=== PATIENT | female | born 1980 | race Caucasian/White ===

== ENCOUNTER → 2019-08-07 08:25 | Outpatient (CLI) | payer BC, SELFPAY ==
--- NOTE | ~2019-08-07 | MMUS_ITS ---
EXAMINATION: MM diagnostic mammo BI, US breast BI limited HISTORY: Bilateral breast asymmetries with possible architectural distortion of left breast reported on screening mammogram of 07/30/2019 TECHNIQUE: Additional 3-D tomosynthesis images of both breasts were performed and synthetic 2-D image s were generated. CAD analysis was submitted and interpreted. High resolution upper outer quadrant le ft breast ultrasound and upper outer and lower-outer quadrants right breast ultrasound examination wa s performed. COMPARISON: 07/30/2019 bilateral digital screening mammogram FINDINGS: MAMMOGRAPHIC FINDINGS: No definite reproducible mass or architectural distortion is evident with small masses might be obscu red by the heterogeneous stroma. Bilateral ultrasound examination was performed. ULTRASOUND: There is no evidence of focal abnormal solid or cystic lesion in the upper outer quadrant of the left breast were upper outer or lower outer quadrants of the right breast. IMPRESSION: 1. No mammographic evidence of malignancy 2. Routine mammographic screening follow-up in 1 year is recommended. BI-RADS Category 1: Negative Reviewed, dictated and finalized at location A. ENGINEER IMPRESSION: 1. No mammographic evidence of malignancy 2. Routine mammographic screening follow-up in 1 year is recommended. BI-RADS Category 1: Negative
== END ==
PROVIDERS: Visit Provider Obstetrics & Gynecology
DX: R92.2 Inconclusive mammogram (principal)
CPT/HCPCS: 76642; 77066

== ENCOUNTER 2020-04-20 06:39 | Emergency (ER) | payer BC, SELFPAY ==
[2020-04-20 06:42] VITALS: BP 153/96; PULSE 72; RESP 19; TEMP 36.3; O2SAT 100
[2020-04-20 07:25] LABS: Add Urine Microscopic? NO; Appearance Urine Clear (Clear); Bilirubin Urine Negative (Negative); Blood Urine Negative (Negative); Color Urine Yellow (Yellow); Glucose Urine UA Negative (Negative); Ketones Urine Negative (Negative); Leukocyte Esterase Ur Negative LEU/UL (Negative); Mucus Urine Rare /lpf; Nitrate Urine Negative (Negative); Protein Urine Negative (Negative); RBC Urine 0-2 /hpf (0-2); Specific Grav Ur 1.019 (1.001-1.035); Squamous Epithelial Cell Urine Occasional /hpf (Few); Urobilinogen Urine Negative mg/dL (<2.0); WBC Urine 0-3 /hpf
[2020-04-20 07:28] LABS: Alanine Aminotransferase 16 U/L (4-35); Albumin Level 4.2 g/dL (3.5-5.1); Alkaline Phosphatase 62 U/L (38-126); Anion Gap 8 mmol/L (8-16); Aspartate Amino Transferase 24 U/L (14-36); Bilirubin,Total 0.3 mg/dL (0.2-1.3); Blood Urea Nitrogen 13 mg/dL (7-17); Calcium 8.9 mg/dL (8.4-10.2); Carbon Dioxide 26 mmol/L (22-30); Chloride 107 mmol/L (98-107); Estimated Glomerular Filt Rate > 60; Glucose 96 mg/dL (65-105); Lipase 53 U/L (23-300); Potassium 3.8 mmol/L (3.4-5.0); Sodium 141 mmol/L (137-145)
[2020-04-20 07:32] LABS: Basophils Percent Auto 0.4 % (0.2-1.2); Eosinophils Absolute Auto 0.4 K/mm3 (0-0.3); Eosinophils Percent Auto 5.4 % (0-4.4); Hematocrit 37.2 % (37.0-47.0); Hemoglobin 12.6 g/dL (12.0-15.0); Immature Granulocyte Absolute 0.02 K/mm3 (0.00-0.031); Immature Granulocyte Percent A 0.3 % (0-0.5); Lymphocytes Absolute Auto 2.12 K/mm3 (0.9-3.2); Lymphocytes Percent Auto 30.1 % (18.3-44.2); Mean Corpuscular HGB Conc 33.9 g/dl (32-36); Mean Corpuscular Hemoglobin 30.8 pg (26-34); Mean Platelet Volume 9.5 fl (7.4-10.4); Monocytes Absolute Auto 0.4 K/mm3 (0.1-0.6); Monocytes Percent Auto 5.7 % (2.6-8.5); Neutrophils Absolute Auto 4.1 K/mm3 (1.3-6.7); Neutrophils Percent Auto 58.1 % (45.5-73.1); Platelet Count Result 230 k/mm3 (150-375); Red Blood Count 4.09 M/mm3 (4.2-5.4); Red Cell Distribution Width 11.5 % (11.5-14.5)
[2020-04-20] MEDS: FAMOTIDINE 20 MG/2 ML VIAL IV PUSH (07:35)
[2020-04-20] MEDS: SODIUM CHLORIDE 0.9% IV 1,000 ML 999 ML IV CONT (07:35)
[2020-04-20] MEDS: ONDANSETRON INJ 4 MG/2 ML VIAL IV PUSH (07:35)
[2020-04-20] MEDS: KETOROLAC 30 MG/ML VIAL (*BKC) IV PUSH (08:26)
--- NOTE | 2020-04-20 08:53 | ED.GENADULT ---
HPI - General Adult General Chief complaint: Nausea/Vomiting/Diarrhea Stated complaint: Vomiting, nausea Time Seen by Provider: 04/20/20 07:11 Source: patient Mode of arrival: ambulatory Limitations: no limitations History of Present Illness HPI narrative: 39-year-old with no major medical problems here with complaints of having headache for past few days along with nausea and vomiting. Patient states that she has been taking all different kinds of medications for headache which is making her to have stomach irritation followed by nausea and vomiting. She denies any fever or chills. She states the headache is very minimal however nausea is the major problem at this time. She denies any abdominal pain or diarrhea. No history of fever or chills. Onset (ago): day(s) (3) Location: head Severity: moderate Quality: aching Pain Consistency: constant Relieving factors: none Exacerbating factors: none Associated symptoms: nausea/vomiting Related Data Allergies Allergy/AdvReac Type Severity Reaction Status Date / Time No Known Allergies Allergy Verified 04/20/20 06:50 Review of Systems Review of Systems: All systems reviewed & are unremarkable except as noted in HPI and below Constitutional: Constitutional: Reports no additional constitutional complaints Eyes: Eyes: Reports no additional eye complaints ENT: Reports system reviewed and no additional complaints, except as documented Cardiovascular: Cardiovascular: Reports no additional cardiovascular complaints Respiratory: Respiratory: Reports no additional respiratory complaints Gastrointestinal: Gastrointestinal: Reports as per HPI Musculoskeletal: Musculoskeletal: Reports no additional musculoskeletal complaints Neurologic: Reports system reviewed and no additional complaints, except as documented Endocrine: Endocrine: Reports no additional endocrine complaints PMFSH Social History Social History Smoking status: Never smoker Exam Narrative: Exam Narrative: GENERAL: Well-appearing, well-nourished, and in no acute distress. HEAD: Normocephalic, atraumatic. EYES: PERRLA and EOMI. ENT: Nares clear, no rhinorrhea or epistaxis. Mucous membranes moist. NECK: Supple. CHEST: Clear to auscultation. No respiratory distress. HEART: Regular rate and rhythm. No murmur heard. Normal peripheral pulses. ABDOMEN: Soft, nontender, nondistended, normal active bowel sounds. EXTREMITIES: Normal range of motion. No edema. SKIN: Warm, dry, no rash. NEURO: No focal deficits. Alert and oriented x3. PSYCH: Normal mood and affect. Course Reevaluation(s) Reevaluation #1: Patient feeling much better, I informed her about her lab work, advised her to take pain medication and nausea medicine as needed. Time: 08:59 Vital Signs Vital signs: Vital Signs Temperature 36.3 C L 04/20/20 06:42 Pulse Rate 72 04/20/20 06:42 Respiratory Rate 04/20/20 06:42 Blood Pressure 153/96 H 04/20/20 06:42 Pulse Oximetry 100 04/20/20 06:42 Temperature 36.3 C L 04/20/20 06:42 Pulse Rate 72 04/20/20 06:42 Respiratory Rate 04/20/20 06:42 Blood Pressure 153/96 H 04/20/20 06:42 Pulse Oximetry 100 04/20/20 06:42 Medical Decision Making Vital Signs Vital Signs: Vital Signs Temperature 36.3 C L 04/20/20 06:42 Pulse Rate 72 04/20/20 06:42 Respiratory Rate 04/20/20 06:42 Blood Pressure 153/96 H 04/20/20 06:42 Pulse Oximetry 100 04/20/20 06:42 Temperature 36.3 C L 04/20/20 06:42 Pulse Rate 72 04/20/20 06:42 Respiratory Rate 04/20/20 06:42 Blood Pressure 153/96 H 04/20/20 06:42 Pulse Oximetry 100 04/20/20 06:42 Lab Data Result diagrams: 04/20/20 07:30 04/20/20 06:57 Labs: Lab Results 04/20/20 04/20/20 04/20/20 Range/Units 06:57 07:10 07:30 WBC 7.0 (4.5-10.0) K/mm3 RBC 4.09 L (4.2-5.4) M/mm3 Hgb 12.6 (12.0-15.0) g/dL
[2020-04-20 09:16] VITALS: BP 145/70; PULSE 70; RESP 12; O2SAT 99
== END 2020-04-20 09:18 | disposition home or self-care (01) ==
PROVIDERS: Emergency Medicine; Emergency Provider Family Medicine; PCP Physician Assistant
DX: R51.9 Headache, unspecified (principal); R11.2 Nausea with vomiting, unspecified
CPT/HCPCS: 36415; 80053; 81003; 81025; 83690; 85025; 96361; 96374; 96375; 99284; J1885; J2405; J7030

== ENCOUNTER → 2021-05-27 15:23 | Outpatient (CLI) | payer BC, SELFPAY ==
--- NOTE | ~2021-05-27 | MM_ITS ---
EXAMINATION: MM screening [facility] BI w dionna HISTORY: Screening mammogram TECHNIQUE: Craniocaudal and mediolateral oblique 3-D tomosynthesis images were obtained and synthetic 2-D images were generated. CAD analysis was submitted and interpreted. COMPARISON: 08/07/2019, 07/30/2019 BREAST PARENCHYMAL COMPOSITION: The breasts are heterogeneously dense, which may obscure small masses . FINDINGS: There is no evidence of suspicious mass, calcification, or architectural distortion to sugg est malignancy in either breast. There has been no suspicious interval change. IMPRESSION: 1. No mammographic evidence of malignancy. 2. Recommend routine screening mammography in one year. BI-RADS Category 1: Negative Reviewed, dictated and finalized at location A. AL SERVICE CHIEF
== END ==
PROVIDERS: PCP Family Medicine; Visit Provider Advanced Practice Midwife
DX: Z12.31 Encounter for screening mammogram for malignant neoplasm of breast (principal)
CPT/HCPCS: 77063; 77067

== ENCOUNTER 2022-02-11 15:16 | Emergency (ER) | payer BC, SELFPAY ==
--- NOTE | ~2022-02-11 | XR_ITS ---
EXAMINATION: XR chest 2V DATE: 02/11/2022 16:14 INDICATION: COVID. 2 weeks of cough. TECHNIQUE: frontal and lateral views of the chest were obtained. COMPARISON: None FINDINGS: The lungs are clear with no focal airspace opacities, pulmonary edema, pleural effusion or pneumothor ax. The cardiomediastinal silhouette is normal. Visualized bones and soft tissues are unremarkable. IMPRESSION: 1. No acute cardiopulmonary disease. Reviewed, dictated and finalized at location A.
[2022-02-11 15:33] VITALS: BP 119/98; PULSE 82; RESP 18; TEMP 37.1; O2SAT 100
--- NOTE | 2022-02-11 15:55 | ED.URI ---
HPI - URI/Sore Throat General Chief Complaint: Upper Respiratory Infection Stated Complaint: COUGH/LOSING VOICE/SORE THROAT S/P COVID Time Seen by Provider: 02/11/22 15:55 Source: patient and RN notes reviewed Mode of arrival: ambulatory Limitations: no limitations History of Present Illness HPI Narrative: 41-year-old female presents to the [facility] with complaints of cough, laryngitis, sore throat. Had COVID approximately 2 weeks ago, tested at home. States the fatigue and the fevers are gone however she does have a lingering sore throat, laryngitis at times and cough. Denies any fevers, chest pain, shortness of breath. Reports that sometimes the cough is productive States that she is concerned she may still be contagious and will be sharing a hotel room this weekend with a friend. Related Data Home Medications Medication Instructions Recorded Confirmed spironolactone 50 mg tablet 50 mg PO DAILY 02/11/22 02/11/22 Allergies Allergy/AdvReac Type Severity Reaction Status Date / Time No Known Allergies Allergy Verified 02/11/22 15:31 Review of Systems Review of Systems: All systems reviewed & are unremarkable except as noted in HPI and below Constitutional: Constitutional: Reports no additional constitutional complaints, Denies chills and Denies fever(s) Eyes: Eyes: Reports no additional eye complaints ENT: Reports as per HPI and Reports sore throat Cardiovascular: Cardiovascular: Reports no additional cardiovascular complaints Respiratory: Respiratory: Reports as per HPI, Reports chest congestion, Reports cough, Denies dyspnea and Denies wheezing Gastrointestinal: Gastrointestinal: Reports no additional gastrointestinal complaints Musculoskeletal: Musculoskeletal: Reports no additional musculoskeletal complaints Integumentary/Breasts: Skin/Breast: Reports system reviewed and no additional complaints, except as docu Neurologic: Reports system reviewed and no additional complaints, except as documented Psychiatric: Psychiatric: Reports no additional psychiatric complaints Allergic/Immunologic: Allergic/Immunologic: Reports no additional allergic/immunologic complaints [facility] Past Medical History Medical History (Updated 02/11/22 @ 16:24 by Madalyn Maldonado APRN) Temporomandibular joint disorders, unspecified Tension type headache, unspecified Social History Social History Smoking status: Never smoker Comments At the time of my signature, I reviewed and agree with the nursing past medical, surgical, social, and family history. There is no relevant family history pertinent to the patient complaint. Exam Const: General: healthy appearing, no acute distress and alert Nutritional Appearance: well nourished Orientation/consciousness: patient oriented x3 Limitations: no limitations HENMT: Head: normal to inspection Ears: external ears normal General nose exam: Normal external nose present Face and sinus: normal facial exam Mouth: Yes Normal oral and palatal mucosa present, Yes lip normal and Yes moist mucous membranes Throat: posterior oropharynx normal and uvula midline Eyes: General: appearance normal, both eyes and all related structures Conjunctivae: conjunctivae normal Pupils: Equal, round and reactive pupils present Neck: Neck: normal visual inspection, no lymphadenopathy and no meningeal signs Chest: Chest palpation & inspection: normal inspection of the chest Resp: Effort & Inspection: normal respiratory effort and no use of accessory muscles Auscultation: clear to auscultation bilaterally, no crackles, no rales, no rhonchi and wheezes (Intermittent left lower) Cardio: Rate: regular rate Rhythm: regular rhythm Back/Spine/Pelvis: Cervical Spine: normal cervical lordosis Thoracic/Lumbar Spine: thoracic and lumbar spine normal to inspection Skin: General skin exam: normal color Rashes: no rashes Wounds: no wounds Neuro: Gener
== END 2022-02-11 16:28 | disposition home or self-care (01) ==
PROVIDERS: Emergency Provider Nurse Practitioner; PCP Physician Assistant
DX: J20.8 Acute bronchitis due to other specified organisms (principal); U09.9 Post COVID-19 condition, unspecified
CPT/HCPCS: 71046; 87081; 87880; 99213; G0463

== ENCOUNTER 2022-06-05 19:01 | Emergency (ER) | payer BC, SELFPAY ==
--- NOTE | 2022-06-05 19:06 | ED.URI ---
HPI - URI/Sore Throat General Chief Complaint: Upper Respiratory Infection Stated Complaint: pt wants strep test Time Seen by Provider: 06/05/22 19:06 Source: patient Mode of arrival: ambulatory Limitations: no limitations History of Present Illness HPI Narrative: Ms. Arciniega is a 42-year-old female patient presenting to the clinic today with complaints of sore throat. She is requesting a strep screen done. She is complaining of a sore throat, cough, congestion, body aches and chills. She is also concerned that she may have flu MD elicited complaint: sore throat and nasal congestion Related Data Home Medications Medication Instructions Recorded Confirmed spironolactone 50 mg tablet 50 mg PO DAILY 02/11/22 02/11/22 Allergies Allergy/AdvReac Type Severity Reaction Status Date / Time No Known Allergies Allergy Verified 02/11/22 15:31 Review of Systems Review of Systems: Pertinent positives per HPI. Patient denies any rash, headache, visual changes, dizziness, shortness of breath, chest pain, palpitations, nausea, vomiting, diarrhea, constipation, abdominal pain, or any urinary issues. [facility] Past Medical History Medical History Temporomandibular joint disorders, unspecified Tension type headache, unspecified Social History Social History Smoking status: Never smoker Comments At the time of my signature, I reviewed and agree with the nursing past medical, surgical, social, and family history. There is no relevant family history pertinent to the patient complaint. Exam Narrative: General: Well-developed, well nourished, in no apparent distress Head: Normocephalic, atraumatic Eyes: Pupils equally round and reactive to light bilaterally, EOM intact, sclera and conjunctive clear, no discharge, lids normal Ears: TMs intact and clear, ear canals clear, no drainage, grossly hearing normal. Nose: Nares patent, clear nasal discharge, no inflammation, no sinus tenderness. Mouth: Oral pharynx without lesions or masses, good dentition, MMM. Oropharynx red, postnasal Neck: Supple, trachea midline, no enlargement of anterior or posterior cervical nodes, no thyroid masses or goiter palpable. Cardio: Regular rate and rhythm, s1 and s2 normal, no murmur appreciated. Resp: Clear to auscultation bilaterally, no rhonchi, rales, wheezing or rubs Course Course Emergency Course: Portions of this record may have been created with voice recognition software. Level of Care: Express Care Visit Vital Signs Vital signs: Vital signs reviewed MDM - URI/Sore Throat MDM Narrative Medical decision making narrative: At the time of visit patient is resting comfortably on the exam table. Influenza and strep testing was completed in the clinic today and were negative. I suspect patient has viral pharyngitis/upper respiratory infection. Supportive measures were discussed with the patient she voiced understanding of discharge instructions and agrees to treatment plan. Differential Diagnosis Differential diagnosis: Likely upper respiratory infection, otitis media, sinusitis, viral infection, bronchitis, influenza, pharyngitis and other Discharge Plan Discharge Clinical Impression: Viral syndrome Upper respiratory infection Qualifiers: URI type: unspecified URI Qualified Code(s): J06.9 - Acute upper respiratory infection, unspecified Pharyngitis Qualifiers: Pharyngitis/tonsillitis etiology: unspecified etiology Qualified Code(s): J02.9 - Acute pharyngitis, unspecified Patient Disposition: Home, Self-Care Condition: Stable Instructions: Antibiotic Form, Pharyngitis (ED), Upper Respiratory Infection (ED), Viral Syndrome (ED) Additional Instructions: Strep screen and influenza was negative in the clinic today. We will send strep for culture. Increase fluids and stay well hydrated Maria L
[2022-06-05 19:21] VITALS: BP 124/88; PULSE 86; RESP 16; TEMP 37.1; O2SAT 98
== END 2022-06-05 19:37 | disposition home or self-care (01) ==
PROVIDERS: Emergency Provider Nurse Practitioner Family; PCP Physician Assistant
DX: B34.9 Viral infection, unspecified (principal); J06.9 Acute upper respiratory infection, unspecified; J02.9 Acute pharyngitis, unspecified
CPT/HCPCS: 87081; 87804; 87880; 99213; G0463

== ENCOUNTER 2022-11-15 17:13 | Emergency (ER) | payer BC, SELFPAY ==
--- NOTE | 2022-11-15 17:14 | ED.URI ---
HPI - URI/Sore Throat General Chief Complaint: Upper Respiratory Infection Stated Complaint: sore throat,congestion,cough Time Seen by Provider: 11/15/22 17:14 Source: patient Mode of arrival: ambulatory Limitations: no limitations History of Present Illness HPI Narrative: Gaviota is a 42-year-old female patient presenting to the clinic today with complaints of sore throat, cough, and congestion x 3 days. She reports that her daughter tested positive for strep and is being treated for it currently. She denies any fever or chills. MD elicited complaint: cough, sore throat and nasal congestion Related Data Home Medications Medication Instructions Recorded Confirmed spironolactone 50 mg tablet 50 mg PO DAILY 02/11/22 11/15/22 Allergies Allergy/AdvReac Type Severity Reaction Status Date / Time No Known Allergies Allergy Verified 11/15/22 17:20 Review of Systems Review of Systems: Pertinent positives per HPI. Patient denies any fever, chills, rash, headache, visual changes, dizziness, cough, shortness of breath, chest pain, palpitations, nausea, vomiting, diarrhea, constipation, abdominal pain, or any urinary issues. [facility] Past Medical History Medical History Temporomandibular joint disorders, unspecified Tension type headache, unspecified Social History Social History Smoking status: Never smoker Comments At the time of my signature, I reviewed and agree with the nursing past medical, surgical, social, and family history. There is no relevant family history pertinent to the patient complaint. Exam Narrative: General: Well-developed, well nourished, in no apparent distress Head: Normocephalic, atraumatic Eyes: Pupils equally round and reactive to light bilaterally, EOM intact, sclera and conjunctive clear, no discharge, lids normal Ears: TMs intact and clear, ear canals clear, no drainage, grossly hearing normal. Nose: Nares patent, clear nasal discharge, no inflammation, no sinus tenderness. Mouth: Oral pharynx red without lesions or masses, good dentition, MMM. Neck: Supple, trachea midline, no enlargement of anterior or posterior cervical nodes, no thyroid masses or goiter palpable. Cardio: Regular rate and rhythm, s1 and s2 normal, no murmur appreciated. Resp: Clear to auscultation bilaterally, no rhonchi, rales, wheezing or rubs Course Course Emergency Course: Portions of this record may have been created with voice recognition software. Level of Care: Express Care Visit Vital Signs Vital signs: Vital signs reviewed MDM - URI/Sore Throat MDM Narrative Medical decision making narrative: At the time of visit patient is resting comfortably on the exam table. Strep screen was obtained was negative in the clinic today. We will send strep for culture. Supportive measures were discussed with the patient she voiced understanding of discharge instructions and agrees to treatment plan. Differential Diagnosis Differential diagnosis: Likely upper respiratory infection, otitis media, sinusitis, viral infection, bronchitis, influenza, pharyngitis and other (COVID) Discharge Plan Discharge Clinical Impression: Upper respiratory infection, Pharyngitis Patient Disposition: Home, Self-Care Condition: Stable Instructions: Antibiotic Form, Pharyngitis (ED), Upper Respiratory Infection (ED) Additional Instructions: Strep screen was negative in the clinic today. We will send for culture if this comes back positive we will contact him place you on antibiotics at that time May take DayQuil/NyQuil for cold/flu symptoms Increase fluids and stay well hydrated Tylenol/motrin for pain/fever Flonase and OTC antihistamines as directed Vicks vapor rub to open sinuses Sinus rinses for congestion Cepacol spray, cough drops, throat lozenges, warm tea with honey/lemo
[2022-11-15 17:21] VITALS: BP 133/99; PULSE 80; RESP 16; TEMP 37.1; O2SAT 100
== END 2022-11-15 17:37 | disposition home or self-care (01) ==
PROVIDERS: Emergency Provider Nurse Practitioner Family; PCP Physician Assistant
DX: J06.9 Acute upper respiratory infection, unspecified (principal); J02.9 Acute pharyngitis, unspecified
CPT/HCPCS: 87081; 87880; 99213; G0463

== ENCOUNTER → 2023-02-18 16:11 | Outpatient (CLI) | payer BC, SELFPAY ==
--- NOTE | ~2023-02-18 | MM_ITS ---
EXAMINATION: MM screening [facility] BI w dionna HISTORY: Screening TECHNIQUE: Craniocaudal and mediolateral oblique 3-D tomosynthesis images were obtained and synthetic 2-D images were generated. CAD analysis was submitted and interpreted. COMPARISON: Comparison to multiple prior studies sequentially, with oldest reviewed study dated 07/30. BREAST PARENCHYMAL COMPOSITION: There are scattered areas of fibroglandular density. FINDINGS: There is a developing nodular asymmetry in the lateral aspect of the right breast on CC vie w and upper outer quadrant of the left breast anteriorly. There are no suspicious calcifications in e ither breast. IMPRESSION: 1. Developing bilateral breast asymmetries. 2. Additional mammographic views and possible breast ultrasound are recommended. BI-RADS Category 0: Incomplete: Needs additional imaging evaluation. Reviewed, dictated and finalized at location A. IMPRESSION: 1. Developing bilateral breast asymmetries. 2. Additional mammographic views and possible breast ultrasound are recommended . BI-RADS Category 0: Incomplete: Needs additional imaging evaluation.
== END ==
PROVIDERS: PCP Family Medicine; Visit Provider Nurse Practitioner
DX: Z12.31 Encounter for screening mammogram for malignant neoplasm of breast (principal); R92.8 Other abnormal and inconclusive findings on diagnostic imaging of breast
CPT/HCPCS: 77063; 77067

== ENCOUNTER → 2023-03-10 09:00 | Outpatient (CLI) | payer BC, SELFPAY ==
--- NOTE | ~2023-03-10 | MMUS_ITS ---
EXAMINATION: MM diagnostic [facility] BI w dionna, US breast BI limited HISTORY: Possible bilateral breast masses on screening mammogram TECHNIQUE: Additional 3-D tomosynthesis images of the breasts were performed and synthetic 2-D images were generated. CAD analysis was submitted and interpreted. High resolution limited bilateral breast ultrasound was performed. COMPARISON: 02/18/2023, 05/27/2021, 08/07/2019, 07/30/2019 FINDINGS: MAMMOGRAPHIC FINDINGS: Right breast: There is a 4 mm oval, obscured, equal density mass in the middle third of the breast at the 6:00 to 7:00 location, 5 cm from the nipple. No suspicious calcification or architectural distor tion are identified. Left breast: There is a return to baseline fibroglandular appearance with spot compression of the lef t breast in the area questioned on screening mammogram. ULTRASOUND: Right breast: There is a 4 mm x 2 mm oval, circumscribed, parallel, hypoechoic mass with no posterior features or internal vascularity at the 7:00 location, 4 cm from the nipple. There is a 5 mm x 1 mm cyst at 8:00 location, 5 cm from the nipple in the right breast. Left breast: There is a 10 mm x 5 mm oval, circumscribed, parallel, hyperechoic mass at the 12:30 loc ation, 5 cm from the nipple with minimal internal vascularity and no posterior acoustic features. IMPRESSION: 1. Probably benign bilateral breast masses. 2. Recommend 6 month follow-up bilateral breast ultrasound. BI-RADS category 3, probably benign findings. Reviewed, dictated and finalized at location B. IMPRESSION: 1. Probably benign bilateral breast masses. 2. Recommend 6 month follow-up bilateral breast ultrasound. BI-RADS category 3, probably benign findings.
== END ==
PROVIDERS: PCP Family Medicine; Visit Provider Nurse Practitioner
DX: R92.2 Inconclusive mammogram (principal)
CPT/HCPCS: 76642; 77062; 77066; G0279

== ENCOUNTER 2024-04-21 16:31 | Emergency (ER) | payer OTHER, SELFPAY ==
--- NOTE | 2024-04-21 16:36 | ED.URI ---
HPI - URI/Sore Throat General Chief Complaint: Upper Respiratory Infection Stated Complaint: sore throat Time Seen by Provider: 04/21/24 16:36 Source: patient Mode of arrival: ambulatory Limitations: no limitations History of Present Illness HPI Narrative: Gaviota is a 43-year-old female patient presenting to the clinic today with complaints of a sore throat, runny nose, and nasal congestion. She has had strep exposure. Is wanting to make sure that she does not have strep. MD elicited complaint: sore throat and nasal congestion Related Data Home Medications Medication Instructions Recorded Confirmed spironolactone 25 mg tablet 25 mg PO BID 02/15/23 04/21/24 ondansetron 4 mg disintegrating 4 mg PO Q6H nausea and vomiting 04/21/24 04/21/24 tablet Allergies Allergy/AdvReac Type Severity Reaction Status Date / Time No Known Allergies Allergy Verified 04/21/24 16:42 Review of Systems Review of Systems: Pertinent positives per HPI. Patient denies any fever, chills, rash, headache, visual changes, dizziness, shortness of breath, chest pain, palpitations, nausea, vomiting, diarrhea, constipation, abdominal pain, or any urinary issues. PMFSH Past Medical History Medical History Temporomandibular joint disorders, unspecified Tension type headache, unspecified Uterine polyp Family History Family History Father Hypertension Grandparent Heart disease Social History Social History Smoking status: Never smoker Alcohol intake: never Comments At the time of my signature, I reviewed and agree with the nursing past medical, surgical, social, and family history. There is no relevant family history pertinent to the patient complaint. Exam Narrative: General: Well-developed, well nourished, in no apparent distress Head: Normocephalic, atraumatic Eyes: Pupils equally round and reactive to light bilaterally, EOM intact, sclera and conjunctive clear, no discharge, lids normal Ears: TMs intact and clear, ear canals clear, no drainage, grossly hearing normal. Nose: Nares patent, clear discharge, no inflammation, no sinus tenderness. Mouth: Oral pharynx red without lesions or masses, good dentition, MMM. Postnasal drip Neck: Supple, trachea midline, no enlargement of anterior or posterior cervical nodes, no thyroid masses or goiter palpable. Cardio: Regular rate and rhythm, s1 and s2 normal, no murmur appreciated. Resp: Clear to auscultation bilaterally, no rhonchi, rales, wheezing or rubs Course Course Emergency Course: Portions of this record may have been created with voice recognition software. Level of Care: Express Care Visit Vital Signs Vital signs: Vital signs reviewed MDM - URI/Sore Throat MDM Narrative Medical decision making narrative: At the time of visit patient is resting comfortably on the exam table. Patient appears to be nontoxic. Labs: Strep test was negative in the clinic today. We will send strep for culture. Plan: I suspect patient has URI pharyngitis. Supportive measures were discussed with the patient and they voiced understanding discharge instructions and agrees to treatment plan. Return precautions reviewed Differential Diagnosis Differential diagnosis: Likely upper respiratory infection, otitis media, sinusitis, viral infection, bronchitis, influenza, pharyngitis and other (COVID) Discharge Plan Discharge Clinical Impression: URI (upper respiratory infection) Qualifiers: URI type: unspecified URI Qualified Code(s): J06.9 - Acute upper respiratory infection, unspecified Pharyngitis Qualifiers: Pharyngitis/tonsillitis etiology: unspecified etiology Qualified Code(s): J02.9 - Acute pharyngitis, unspecified Patient Disposition: Home, Self-Care Condition: Stable Instructions: An
[2024-04-21 16:39] VITALS: BP 132/88; PULSE 74; RESP 16; TEMP 36.6; O2SAT 98
[2024-04-21 16:53] LABS: EDSTREPNEGPOS1 Negative (Negative)
== END 2024-04-21 17:02 | disposition home or self-care (01) ==
PROVIDERS: Emergency Provider Nurse Practitioner Family; PCP Family Medicine
DX: J06.9 Acute upper respiratory infection, unspecified (principal)
CPT/HCPCS: 87081; 87880; 99213; G0463

== ENCOUNTER 2024-09-24 10:53 | Outpatient (CLI) | payer OTHER, SELFPAY ==
[2024-09-24 12:37] LABS: Strep Group A RT-PCR NOT DETECTED (Negative)
[2024-09-24 12:48] LABS: Influenza A QL RT-PCR Negative (Negative); Influenza B QL RT-PCR Positive (Negative); RSV RNA, RT-PCR Negative (Negative); SARS-CoV-2 RNA PCR Negative (Negative)
--- OUTSIDE RECORDS SUMMARY | 2024-09-24 13:21 | XMS_ITS | Referral Summary ---
Author Organization [facility] [employer] Address [address] [place] [address] Care Team Providers Care Parks And Recreation Manager Name Role Phone Dylan Chowdhury MD Primary Care Provider Source Comments [facility],non-owned Affiliates and Associated Physician Practices is amultiple site organization consisting of ambulatory clinics and hospital sitesin [place], [place], [place] and [place]. This disclosure is being madepursuant to the Care Everywhere program and may not contain all information available regarding this patient. Last updated 18.[facility] [employer] Allergies No known active allergies Immunizations Name Administration Dates Next Due TDAP (7yrs+) 06/25/2017 Social History Tobacco Use Types Packs/Day Years Used Date Smoking Tobacco: Never Assessed Sex and Gender Information Value Date Recorded Sex Assigned at Not on file Gender Identity Not on file Sexual Orientation Not on file Plan of Treatment Not on file Care Teams Parks And Recreation Manager Relationship Specialty Start Date End Date Dylan Chowdhury MD [address] [place] [id number] PCP - General Family Medicine 06/25/17
--- OUTSIDE RECORDS SUMMARY | 2024-09-24 13:21 | XMS_ITS | Encounter Summary ---
Author Organization [facility] Address [address] [place] [address] Care Team Providers Care Book Retailer Name Role Phone Unavailable Primary Care Provider Unavailabl e Reason for Visit * Diagnostic Imaging (Routine) - Closed Specialty Diagnoses / Procedures Referred By Contshakira t Referred To Contact Procedures Breast Imaging Diagnostic Outside Reference Ewelina Bar NP [address] [facility] [id number] [place] [address] Phone: tel: fax: Referral ID Status Reason Start Date Expiration Date Visits Re quested Visits Authorized [id number] Closed 04/28/2023 05/27/2024 1 1 Encounter Details Date Type Department Care Team (Late st Contact Info) Description 08/07/2019 Hospital Encounter [facility] [address] [place] [address] Social History Tobacco Use Types Packs/Day Years Used Date Smoking Tobacco: Never Assessed Comments Unknown Sex and Gender Information Value Date Recorded Sex Assigned at Not on file Legal Sex Female 11:00 AM CDT Gender Identity Not on file Sexual Orientation Not on file documented as of this encounter Plan of Treatment Not on file documented as of this encounter Procedures Procedure Name Priority Date/Time Associated Diagnosis Comments BREAST IMAGING MG DIAGNOSTIC OUTSIDE REFERENCE Routine 08/07/2019 12:00 AM IT SYSTEMS ANALYST CONSULTANT documented in this encounter Results * Breast Imaging Diagnostic Outside Reference (08/07/2019 12:00 AM IT SYSTEMS ANALYST CONSULTANT) Impressions RAD_MAMMO_[facility] - 04/28/2023 1:05 PM CDT These images are for Reference purposes only and have not been reviewed by [facility]. There will be no report generated by a [facility]iologist. Narrative RAD_MAMMO_[facility] - 04/28/2023 1:05 PM CDT EXAMINATION: Images For Reference Purposes Only us Ewelina Bar NP IMG MAMMO PROCEDURES Final Result RAD[facility]MAMMO_[facility] documented in this encounter Visit Diagnoses Not on filedocumented in this encounter
--- OUTSIDE RECORDS SUMMARY | 2024-09-24 13:21 | XMS_ITS | Encounter Summary ---
Author Organization [facility] Healthcare Address [address] [place] [address] Care Team Providers Care Supervisor Lead Refinery Name Role Phone Unavailable Primary Care Provider Unavailabl e Reason for Visit * Diagnostic Imaging (Routine) - Closed Specialty Diagnoses / Procedures Referred By Contac t Referred To Contact Procedures Breast Imaging US Outside Reference Ewelina Bar NP [address] [facility] [id number] [place] [address] Phone: tel: fax: Referral ID Status Reason Start Date Expiration Date Visits Re quested Visits Authorized [id number] Closed 04/28/2023 05/27/2024 1 1 Encounter Details Date Type Department Care Team (Late st Contact Info) Description 08/07/2019 12:05 AM AFTER SCHOOL CAREGIVER Hospital Encounter [facility]iology [facility] [address] [place] [address] Social History Tobacco Use Types Packs/Day Years [...] Priority Date/Time Associated Diagnosis Comments BREAST IMAGING US OUTSIDE REFERENCE Routine 08/07/2019 12:05 AM AFTER SCHOOL CAREGIVER documented in this encounter Results * Breast Imaging US Outside Reference (08/07/2019 12:05 AM AFTER SCHOOL CAREGIVER) Impressions RAD_MAMMO_[facility] - 04/28/2023 1:08 PM CDT These images are for Reference purposes only and have not been reviewed by [facility]. There will be no report generated by a [facility]iologist. Narrative RAD_MAMMO_[facility] - 04/28/2023 1:08 PM CDT EXAMINATION: Images For Reference Purposes Only us Ewelina Bar NP IMG MAMMO PROCEDURES Final Result [facility]_MAMMO_[facility] documented in this encounter Visit Diagnoses Not on filedocumented in this encounter
--- OUTSIDE RECORDS SUMMARY | 2024-09-24 13:21 | XMS_ITS | Clinical Summary ---
Author Organization [facility] [employer] Address [address] [place] [address] Care Team Providers Care Tour Agent Name Role Phone Dylan Chowdhury MD Primary Care Provider [phone] Source Comments [facility] [employer],non-owned Affiliates and Associated Physician Practices is amultiple site organization consisting of ambulatory clinics and hospital sitesin [place], [place], [place] and [place]. This disclosure is being madepursuant to the Care Everywhere program and may not contain all information available regarding this patient. Last updated 18.[facility] [employer] Allergies No known active allergies Immunizations Name Administration Dates Next Due TDAP (7yrs+) 06/25/2017 Social History Tobacco Use Types Packs/Day Years Used Date Smoking Tobacco: Never Assessed Sex and Gender Information Value Date Recorded Sex Assigned at Not on file Gender Identity Not on file Sexual Orientation Not on file Plan of Treatment Health Maintenance Due Date Last Done Comments COLOGUARD (AGES 45-75) - COL ON CA SCREENING 1978 COLON MONITORING 1978 COLONOSCOPY - COLON CA SCREENING 1978 CT COLONOGRAPHY - COLON CA SCREENING 1978 Colorectal Cancer Screening 1978 FIT - COLON CA SCREENING 1978 FLEX SIG - COLON CA SCREENING 1978 LIPID TESTING 1978 MAMMOGRAM 1978 PAP SMEAR 1978 HIV SCREENING 1993 HEPATITIS C SCREENING 05/04/1996 HEPATITIS B VACCINE (1 of 3 - 19+ 3-dose series) 1997 COVID-19 VACCINE (2023-2 5 season) 2024 INFLUENZA VACCINE (#1) 2024 DEPRESSION SCREENING 07/11/2024 DTAP/TDAP/TD VACCINES (2 - T d or Tdap) 06/25/2027 06/25/2017 ZOSTER VACCINE (1 of 2) 2028 HIB VACCINE Aged Out No longer eligi ble based on patient's age to complete this topic HPV VACCINE Aged Out No longer eligi ble based on patient's age to complete this topic MENINGOCOCCAL (Group B) VACC INE SHARED DECISION-MAKING Aged Out No longer eligibl e based on patient's age to complete this topic MENINGOCOCCAL GROUPS A/C/Y/W VACCINE Aged Out No longer eligible b ased on patient's age to complete this topic PNEUMOCOCCAL VACCINE Aged Out No long er eligible based on patient's age to complete this topic Care Teams Tour Agent Relationship Specialty Start Date End Date Dylan Chowdhury MD [address] [place] [address] PCP - General Family Medicine 06/25/17
--- OUTSIDE RECORDS SUMMARY | 2024-09-24 13:21 | XMS_ITS | Encounter Summary ---
Author Organization [facility] Address [address] [place] [address] Care Team Providers Care Type Rolling Machine Operator Name Role Phone Dylan Chowdhury MD Primary Care Provider [phone] Encounter Details Date Type Department Care Team (Late st Contact Info) Description 09/09/2023 Lab Requisition [facility] - DermPath Lab [address] [place] [id number] Tata Motta MD [address] [place] [id number] Social History Tobacco Use Types Packs/Day Years Used Date Smoking Tobacco: Never Assessed Sex and Gender Information Value Date Recorded Sex Assigned at Not on file Gender Identity Not on file Sexual Orientation Not on file documented as of this encounter Plan of Treatment Not on file documented as of this encounter Procedures Procedure Name Priority Date/Time Associated Diagnosis Comments DERMPATH SLIDE CONSULT Routine 09/09/2023 12:00 AM COCONUT BOILER documented in this encounter Results * DERMPATH SLIDE CONSULT (09/09/2023 12:00 AM COCONUT BOILER) Case Report Dermatopathology Report Case: [id number] Authorizing Provider: Tata Motta MD Collected: 09/09/2023 12:00 AM Ordering Location: [facility] DermPath Lab Received: 09/09/2023 07:27 AM Pathologist: Flor Vazquez MD Specimen: Slide(s), left superior helix, [id number] 3:32 PM COCONUT BO[facility]ER DERMATOPATHOLOGY LABORATORY Final Diagnosis Specimen A. Slide(s), left superior helix, [id number]: LENTIGINOUS MELANOCYTIC NEVUS, COMPOUND TYPE (D22.22) PRESENT AT MARGIN (see microscopic description and comment) 3:32 PM [facility] DERMATOPATHOLOGY LABORATORY Clinical History Materials received from: [facility] Dermatology [address] [place] [address] P [phone] Received at the request of Dr Tata Motta are 2 slides labeled [id number]. (H&E & Juanis red) Outside diagnosis: Lentiginous compound nevus with moderate atypia Any additional sections, special stains or immunohistochemical stains performed by our laboratory will be kept here on file. 3:32 PM [facility] DERMATOPATHOLOGY LABORATORY Microscopic Description Specimen A. Slide(s), left superior helix, [id number]: This is a compound nevus. There is a lentiginous proliferation of melanocytes between nevus nests of cells along the dermal-epidermal junction. There is underlying lamellar fibroplasia of the papillary dermis. The intradermal component is bland in appearance and matures with depth. This lesion is present at the margin of the specimen. A provided Mart1/MelanA stain confirms these findings. COMMENT: The histopathologic findings of the portion of the lesion sampled are reassuring. However, as this lesion is present at the margins of the specimen, clinicopathological correlation is recommended as to the nature of the remaining lesion, particularly in this anatomic site. Complete removal is recommended if clinical pigment remains or if the lesion has recently demonstrated growth or change. This case has been reviewed by Dr. Sonya Vazquez who concurs with the diagnosis. 3:32 PM [facility] DERMATOPATHOLOGY LABORATORY Disclaimer An external and internal positive and negative controls are appropriate for the histochemical, immunohistochemical and immunofluorescence stain(s) in this case (if any), except where stated explicitly. The performance characteristics of the stain(s) cited in this report were developed and its performance characteristic determined by the Dermatopathology Laboratory at [facility], directed by Dr. Percy Beavers. These tests need not be, and therefore are not, approved by the [place] Food and Drug Administration. The tests are used for clinical purposes. Billing Codes Specimen Charges Stain Charges 32026 1 4 3:32 PM [facility] DERMATOPATHOLOGY LABORATORY Embedded Images 4 3:32 PM [facility] DERMATOPATHOLOGY LABORATORY Pathology/Cytolog y SLIDE / Unknown 09/09/2023 09/09/2023 7:27 AM COCONUT BOILER Tata Motta MD LAB - PATHOLOGY/CYTO LOGY ORDERABLES DERMATOPATHOLOGY LABORATORY [facility] - Department of Dermatology [facility] Medicine [address] [place] [address], [address] [phone] documented in this encounter Visit Diagnoses Not on filedocumented in this encounter Care Teams Type Rolling Machine Operator Relationship Specialty Start Date End Date Dylan Chowdhury MD [address] [place] [address] PCP - General Family Medicine 06/25/17 documented as of this encounter
--- OUTSIDE RECORDS SUMMARY | 2024-09-24 13:21 | XMS_ITS | Patient Health Summary ---
Author Organization [facility] [employer] Address [address] [place] [address] Care Team Providers Care Visitor Services Associate Name Role Phone Dylan Chowdhury MD Primary Care Provider [phone] Note from [facility],non-owned Affiliates and Associated Physician Practices is amultiple site organization consisting of ambulatory clinics and hospital sitesin [place], [place], [place] and [place]. This disclosure is being madepursuant to the Care Everywhere program and may not contain all information available regarding this patient. Last updated 18.[facility] [employer] Allergies No known active allergies Immunizations * TDAP (7yrs+)(Given 06/25/2017) Social History Tobacco Use Types Packs/Day Years Used Date Smoking Tobacco: Never Assessed Sex and Gender Information Value Date Recorded Sex Assigned at Not on file Gender Identity Not on file Sexual Orientation Not on file Procedures * DERMPATH SLIDE CONSULT(Performed 09/09/2023) Results * DERMPATH SLIDE CONSULT (09/09/2023 12:00 AM LUMPIA WRAPPER MAKER) Case Report Dermatopathology Report Case: [id number] Authorizing Provider: Tata Motta MD Collected: 09/09/2023 12:00 AM Ordering Location: [facility] DermPath Lab Received: 09/09/2023 07:27 AM Pathologist: Flor Vazquez MD Specimen: Slide(s), left superior helix, [id number] 3:32 PM [facility] WRAP[facility] DERMATOPATHOLOGY LABORATORY Final Diagnosis Specimen A. Slide(s), left superior helix, [id number]: LENTIGINOUS MELANOCYTIC NEVUS, COMPOUND TYPE (D22.22) PRESENT AT MARGIN (see microscopic description and comment) 3:32 PM [facility] DERMATOPATHOLOGY LABORATORY Clinical History Materials received from: [facility] Dermatology [address] [place] [address] P [phone] Received at the request of Dr Tata Motta are 2 slides labeled [id number]. (H&E & Juanis red) Outside diagnosis: Lentiginous compound nevus with moderate atypia Any additional sections, special stains or immunohistochemical stains performed by our laboratory will be kept here on file. 3:32 PM [facility] DERMATOPATHOLOGY LABORATORY Microscopic Description Specimen A. Slide(s), left superior helix, [id number]: This is a compound nevus. There is [...] who concurs with the diagnosis. 3:32 PM [facility] DERMATOPATHOLOGY LABORATORY Disclaimer An external and internal positive and negative controls are appropriate for the histochemical, immunohistochemical and immunofluorescence stain(s) in this case (if any), except where stated explicitly. The performance characteristics of the stain(s) cited in this report were developed and its performance characteristic determined by the Dermatopathology Laboratory at [facility], directed by Dr. Percy Beavers. These tests need not be, and therefore are not, approved by the [place] Food and Drug Administration. The tests are used for clinical purposes. Billing Codes Specimen Charges Stain Charges 63357 1 4 3:32 PM [facility] DERMATOPATHOLOGY LABORATORY Embedded Images 3:32 PM [facility] WRAP[employer] [facility] DERMATOPATHOLOGY LABORATORY Pathology/Cytolog y SLIDE / Unknown 09/09/2023 09/09/2023 7:27 AM LUMPIA WRAPPER MAKER Tata Motta MD LAB - PATHOLOGY/CYTO LOGY ORDERABLES DERMATOPATHOLOGY LABORATORY [facility] - Department of Dermatology [facility] Medicine [address] [place] [address], [address] [phone] Care Teams Visitor Services Associate Relationship Specialty Start Date End Date Dylan Chowdhury MD [address] [place] [address] PCP - General Family Medicine 06/25/17
--- OUTSIDE RECORDS SUMMARY | 2024-09-24 13:21 | XMS_ITS | Referral Summary ---
Author Organization [facility] al Address [address] [place] [address] Care Team Providers Care Railroad Passenger Agent Name Role Phone Maisha Rojas DO Primary Care Provider [phone]- [phone] Allergies No known active allergies Medications benzonatate (TESSALON) 200 mg capsuleIndicatio ns:Upper respiratory infection, acute Take 1 capsule (200 mg total) by mouth 3 (three) times a day as needed for cough 30 capsule 1 Active Additional Information Patient not taking.Reported on 05/28/2024 tretinoin (RETIN-A) 0.025 % cream Apply topically nightly 4 Active Active Problems No known active problems Immunizations Immunization Administration Dates Next Due Influenza, Quadrivalent, Spl it, Preservative Free, Intramuscular 05/13/2020 Tdap 06/25/2017,01/16/2015 Social History Tobacco Use Types Packs/Day Years Used Date Smoking Tobacco: Never Assessed Comments Unknown Sex and Gender Information Value Date Recorded Sex Assigned at Not on file Legal Sex Female 11:00 AM CDT Gender Identity Not on file Sexual Orientation Not on file Last Filed Vital Signs Vital Sign Reading Time Taken Comments Blood Pressure 110/80 06/27/2021 8:26 AM MANAGER CONTENT Pulse 87 06/27/2021 8:26 AM MANAGER CONTENT Temperature 37.3 C (99.1 F) 06/27/2021 8:26 AM MANAGER CONTENT Respiratory Rate - - Oxygen Saturation 97% 06/27/2021 8:26 AM MANAGER CONTENT Inhaled Oxygen Concentration - - Weight 63.5 kg (140 lb) 05/28/2024 2:58 PM MANAGER CONTENT Height 167.6 cm (5' 6 ) 05/28/2024 2:58 PM MANAGER CONTENT Body Mass Index 22.6 05/28/2024 2:58 PM MANAGER CONTENT Plan of Treatment Not on file Procedures Procedure Name Priority Date/Time Associated Diagnosis Comments SCREENING MAMMOGRAM BILATERAL W RICHARDSON Schedule Routine, Read Routine (OP Routine) 05/28/2024 3:43 PM MANAGER CONTENT Abnormal mammogram from Last 3 Months or Most Recently Relevant to Health Maintenance Results * Screening Mammogram Bilateral W Richardson (05/28/2024 3:43 PM MANAGER CONTENT) Anatomical Region Laterality Modality Breast Bilateral Mammography Narrative 05/29/2024 11:16 AM MANAGER CONTENT Mammogram Technique: Bilateral Digital Breast Tomosynthesis, Bilateral C-view 2D Screening mammogram. Views obtained: bilateral craniocaudal and bilateral mediolateral oblique. Computer Aided Detection was performed. Mammogram Findings: No prior imaging studies are available for comparison. The breasts are heterogeneously dense, which may obscure small masses. There is no suspicious abnormality in either breast. There are no significant changes from the prior study. Impression: There is no mammographic evidence of malignancy. Annual screening mammography is recommended. If supplemental screening is desired, breast MRI would be recommended in this patient with heterogeneously dense breasts. OVERALL FINAL ASSESSMENT: BI-RADS CATEGORY 1: Negative. Procedure Note Tequila Elder MD - 05/29/2024 Mammogram Technique: Bilateral Digital Breast Tomosynthesis, Bilateral C-view 2D Screening mammogram. Views obtained: bilateral craniocaudal and bilateral mediolateral oblique. Computer Aided Detection was performed. Mammogram Findings: No prior imaging studies are available for comparison. The breasts are heterogeneously dense, which may obscure small masses. There is no suspicious abnormality in either breast. There are no significant changes from the prior study. Impression: There is no mammographic evidence of malignancy. Annual screening mammography is recommended. If supplemental screeningis desired, breast MRI would be recommended in this patient with heterogeneously dense breasts. OVERALL FINAL ASSESSMENT: BI-RADS CATEGORY 1: Negative. Ewelina Bar NP IMG MAMMO PROCEDURES Final Result from Last 3 Months or Most Recently Relevant to Health Maintenance Insurance [facility]UE [facility] [place] [facility] H[facility]/PPO Address: [address] [place] [address] [facility] [employer] H[facility]/PPO Address: [facility] [id number] [place] [address] Care Teams Railroad Passenger Agent Relationship Specialty Start Date End Date Maisha Rojas DO [address] [place] [address] [address] [place] [address] [id number] PCP - General Family Medicine 05/28/24
--- OUTSIDE RECORDS SUMMARY | 2024-09-24 13:21 | XMS_ITS | Clinical Summary ---
Author Organization [facility] al Address [address] [place] [address] Care Team Providers Care Asbestos Hazard Abatement Worker Name Role Phone Maisha Rojas DO Primary Care Provider +1- [phone] Allergies No known active allergies Medications benzonatate [...] on file Sexual Orientation Not on file Obstetrics History Last Filed Vital Signs Vital Sign Reading Time Taken Comments Blood Pressure 110/80 06/27/2021 8:26 AM CANS VACUUM TESTER Pulse 87 06/27/2021 8:26 AM CANS VACUUM TESTER Temperature 37.3 C (99.1 F) 06/27/2021 8:26 AM CANS VACUUM TESTER Respiratory Rate - - Oxygen Saturation 97% 06/27/2021 8:26 AM CANS VACUUM TESTER Inhaled Oxygen Concentration - - Weight 63.5 kg (140 lb) 05/28/2024 2:58 PM CANS VACUUM TESTER Height 167.6 cm (5' 6 ) 05/28/2024 2:58 PM CANS VACUUM TESTER Body Mass Index 22.6 05/28/2024 2:58 PM CANS VACUUM TESTER Plan of Treatment Health Maintenance Due Date Last Done Comments Cervical Cancer Screening 1978 Colon Cancer Screening-Colonoscopy 1978 Depression Screening 1978 Hepatitis C Screening 1978 Hepatitis B Screening 1996 Regular Well Visit/Exam 18-64 1996 Covid-19 Vaccine (3 - 2023-2 5 season) 2024 10/28/2020, 10/07/2020 Influenza Vaccine (#1) 2024 05/13/2020 Breast Cancer Screening-Mammogram 05/28/2025 05/28/2024, 05/28/2021 DTaP/Tdap/Td Vaccine (3 - Td or Tdap) 06/25/2027 06/25/2017, 01/16/2015 HPV Vaccines Aged Out No longer eligi ble based on patient's age to complete this topic Pneumococcal vaccine <65 Aged Out No longer eligible based on patient's age to complete this topic Procedures Procedure Name Priority Date/Time Associated Diagnosis Comments SCREENING MAMMOGRAM BILATERAL W RICHARDSON Schedule Routine, Read Routine (OP Routine) 05/28/2024 3:43 PM CANS VACUUM TESTER Abnormal mammogram from Last 3 Months or Most Recently Relevant to Health Maintenance Results * Screening Mammogram Bilateral W Richardson (05/28/2024 3:43 PM CANS VACUUM TESTER) Anatomical Region Laterality Modality Breast Bilateral Mammography Narrative 05/29/2024 11:16 AM CANS VACUUM TESTER Mammogram Technique: Bilateral Digital Breast Tomosynthesis, Bilateral [...] BI-RADS CATEGORY 1: Negative. Ewelina Bar NP IM MAMMO PROCEDURES Final Result from Last 3 Months or Most Recently Relevant to Health Maintenance Insurance [place] 8 Securities [facility] Care Teams Asbestos Hazard Abatement Worker Relationship Specialty Start Date End Date Maisha Rojas DO [address] [facility] [address] [place] [id number] PCP - General Family Medicine 05/28/24
--- OUTSIDE RECORDS SUMMARY | 2024-09-24 13:21 | XMS_ITS | Encounter Summary ---
Author Organization [facility] Healthcare Address [address] [place] [address] Care Team Providers Care Tab Machine Operator Name Role Phone Unavailable Primary Care Provider Unavailabl e Reason for Visit * Diagnostic Imaging (Routine) - Closed Specialty Diagnoses / Procedures Referred By Maria Ines t Referred To Contact Procedures Breast Imaging Screening Outside Reference Ewelina Bar NP [address] [facility] [id number] [place] [address] Phone: tel: fax: Referral ID Status Reason Start Date Expiration Date Visits Re quested Visits Authorized [id number] Closed 04/28/2023 05/27/2024 1 1 Encounter Details Date Type Department Care Team (Late st Contact Info) Description 07/30/2019 Hospital Encounter [facility] [address] [place] [address] Social History Tobacco Use Types Packs/Day Years [...] Date/Time Associated Diagnosis Comments BREAST IMAGING MG SCREENING OUTSIDE REFERENCE Routine 07/30/2019 12:00 AM DIRECTOR PHARMACOVIGILANCE documented in this encounter Results * Breast Imaging Screening Outside Reference (07/30/2019 12:00 AM DIRECTOR PHARMACOVIGILANCE) Impressions RAD_MAMMO_[facility] - 04/28/2023 1:09 PM CDT These images are for Reference purposes only and have not been reviewed by [facility] Radiology. There will be no report generated by a [facility] Radiologist. Narrative RAD_MAMMO_[facility] - 04/28/2023 1:09 PM CDT EXAMINATION: Images For Reference Purposes Only us Ewelina Bar NP IMG MAMMO PROCEDURES Final Result RAD_MAMMO_[facility] documented in this encounter Visit Diagnoses Not on filedocumented in this encounter
== END 2024-09-24 10:54 | disposition home or self-care (01) ==
LOC: ANHLAB 10:53
PROVIDERS: PCP Family Medicine; Visit Provider Nurse Practitioner
DX: R50.9 Fever, unspecified (principal); J02.9 Acute pharyngitis, unspecified; Z20.822 Contact with and (suspected) exposure to COVID-19
CPT/HCPCS: 87637; 87651

== ENCOUNTER 2025-02-15 02:35 | Day surgery (SDC) | payer OTHER, SELFPAY ==
[2025-02-05 09:32] VITALS: BMI 23.7
--- OUTSIDE RECORDS SUMMARY | 2025-02-15 02:38 | XMS_ITS | Encounter Summary ---
Author Organization [facility] Healthcare Address [address] [place] [address] Care Team Providers Care Film Loader Name Role Phone Unavailable Primary Care Provider Unavailabl e Reason for Visit * Diagnostic Imaging (Routine) - Closed Specialty Diagnoses / Procedures Referred By Contshakira t Referred To Contact Procedures Breast Imaging Diagnostic Outside Reference Ewelina Bar NP [address] [facility] [id number] [place] [address] Phone: tel: fax: Referral ID Status Reason Start Date Expiration Date Visits Re quested Visits Authorized [id number] Closed 04/28/2023 05/27/2024 1 1 Encounter Details Date Type Department Care Team (Late st Contact Info) Description 08/07/2019 Hospital Encounter [facility] [address] [place] [address] Social History Tobacco Use Types Packs/Day Years [...] DIAGNOSTIC OUTSIDE REFERENCE Routine 08/07/2019 12:00 AM LOAN TELLER documented in this encounter Results * Breast Imaging Diagnostic Outside Reference (08/07/2019 12:00 AM LOAN TELLER) Impressions RAD_MAMMO_[facility] - 04/28/2023 1:05 PM CDT These images are for Reference purposes only and have not been reviewed by [facility] Radiology. There will be no report generated by a [facility] Radiologist. Narrative RAD_MAMMO_[facility] - 04/28/2023 1:05 PM CDT EXAMINATION: Images For Reference Purposes Only us Ewelina Bar NP IMG MAMMO PROCEDURES Final Result RAD_MAMMO_[facility] documented in this encounter Visit Diagnoses Not on filedocumented in this encounter
--- OUTSIDE RECORDS SUMMARY | 2025-02-15 02:38 | XMS_ITS | Encounter Summary ---
Author Organization [facility] Healthcare Address [address] [place] [address] Care Team Providers Care Tray Line Worker Name Role Phone Unavailable Primary Care Provider Unavailabl e Reason for Visit * Diagnostic Imaging (Routine) - Closed Specialty Diagnoses / Procedures Referred By Contac t Referred To Contact Procedures Breast Imaging US Outside Reference Ewelina Bar NP [address] [facility] [id number] [place] [address] Phone: tel: fax: Referral ID Status Reason Start Date Expiration Date Visits Re quested Visits Authorized [id number] Closed 04/28/2023 05/27/2024 1 1 Encounter Details Date Type Department Care Team (Late st Contact Info) Description 08/07/2019 12:05 AM BOX WORKER Hospital Encounter [facility] [address] [place] [id number] Social History Tobacco Use Types Packs/Day Years [...] US OUTSIDE REFERENCE Routine 08/07/2019 12:05 AM BOX WORKER documented in this encounter Results * Breast Imaging US Outside Reference (08/07/2019 12:05 AM BOX WORKER) Impressions RAD_MAMMO_[facility] - 04/28/2023 1:08 PM CDT These images are for Reference purposes only and have not been reviewed by [facility] Radiology. There will be no report generated by a [facility] Radiologist. Narrative RAD_MAMMO_[facility] - 04/28/2023 1:08 PM CDT EXAMINATION: Images For Reference Purposes Only us Ewelina Bar NP IMG MAMMO PROCEDURES Final Result RAD_MAMMO_[facility] documented in this encounter Visit Diagnoses Not on filedocumented in this encounter
--- OUTSIDE RECORDS SUMMARY | 2025-02-15 02:38 | XMS_ITS | Clinical Summary ---
Author Organization [facility] Address [address] [facility] [place] [address] Care Team Providers Care Compliance Engineer Products Name Role Phone Maisha Rojas DO Primary Care Provider [phone] Source Comments [facility],non-owned Affiliates and Associated Physician Practices is amultiple site organization consisting of ambulatory clinics and hospital sitesin [place], [place], [place] and [place]. This disclosure is being madepursuant to the Care Everywhere program and may not contain all information available regarding this patient. Last updated 18.[facility] Allergies No known active allergies Medications * Be aware that medications may not be up to date on this document. Alwaysverify current medications with the patient. amoxicillin-cla vulanate (Augmentin) 875-125 MG tablet Take 1 (one) tablet by mouth 2 times daily 09/24/2024 Active benzonatate (Tessalon) 200 MG capsule TAKE 1 CAPSULE BY MOUTH THREE TIMES A DAY NEEDED FOR COUGH 09/20/2024 Active guaiFENesin-cod eine (Robitussin AC) 100-10 MG/5ML syrup TAKE 7.5 ML ORALLY EVERY 4 - 6 HOURS 09/26/2024 Active methylPREDNISol one (Medrol Dosepak) 4 MG tablet TAKE 6 TABLETS ON DAY 1 DIRECTED ON PACKAGE AND DECREASE BY 1 TAB EACH DAY FOR A TOTAL OF 6 DAYS 09/24/2024 Active ondansetron, disintegrating, (Zofran ODT) 4 MG tablet DISSOLVE 1 TAB ON TONGUE EVERY 6 HOURS NEEDED FOR NAUSEA AND VOMITING 12/25/2024 Active spironolactone (Aldactone) 25 MG tablet TAKE 1 TABLET TWICE DAILY WITH A FULL GLASS OF WATER Active tretinoin (Retin-A) 0.025 % cream APPLY A THIN LAYER TO FACE EVERY OTHER NIGHT, INCREASE TO NIGHTLY TOLERATED. Active Active Problems Problem Noted Date Diagnosed Date Dysplastic nevus 12/16/2023 Melanocytic nevus of right lower extremity 12/14 Neoplasm of uncertain behavior of skin Verruca 02/10/2022 Disorder of pigmentation 08/03/2021 Hemangioma of skin and subcutaneous tissue 08/03 Melanocytic nevi of left ear 08/03/2021 Melanocytic nevus of right upper extremity 08/03 Melanocytic nevus of left upper extremity 2021 Melanocytic nevus of left lower extremity 2021 Melanocytic nevus of trunk 08/03/2021 Seborrheic keratosis 08/03/2021 Skin changes due to chronic exposure to nonionizing radiation 08/03/2021 Acne vulgaris 04/23/2021 Non-proteinuric hypertension of 2017 Overview (01/07/2025): Gestational hypertension without significant proteinuria, complicating the period;Recorded Elsewhere: No Location: [facility] Source: EHR Chronic: N Practice ID: [id number] Billable Time: 11:00:00 AM 38 weeks gestation of 07/21/2017 Overview (01/07/2025): 38 weeks gestation of ;Practice ID: [id number] 32 weeks gestation of 06/12/2017 Overview (01/07/2025): 32 weeks gestation of ;Practice ID: [id number] 24 weeks gestation of 04/21/2017 Overview (01/07/2025): 24 weeks gestation of ;Recorded Elsewhere: No Location: [facility] Source: EHR Chronic: N Practice ID: [id number] Billable Time: 01:00:00 PM Placenta previa 04/21/2017 Overview (01/07/2025): Placenta previa specified as w/o hemor, second trimester;Recorded Elsewhere: No Location: [facility] Source: EHR Chronic: N Practice ID: [id number] Billable Time: 01:00:00 PM 11 weeks gestation of 01/20/2017 Overview (01/07/2025): 11 weeks gestation of ;Recorded Elsewhere: No Location: [facility] Source: EHR Chronic: N Practice ID: [id number] Billable Time: 08:15:00 AM Urinary tract infectious disease 10/14/2016 Overview (01/07/2025): UTI;Recorded Elsewhere: No Location: [facility] Source: EHR Chronic: N Practice ID: [id number] Billable Time: 03:15:00 PM Acute vaginitis 05/11/2016 Overview (01/07/2025): Vaginitis;Recorded Elsewhere: No Location: [facility] Source: EHR Chronic: N Practice ID: [id number] Billable Time: 05:30:00 PM Microscopic hematuria 03/02/2016 Overview (01/07/2025): Other microscopic hematuria;Recorded Elsewhere: No Location: [facility] Source: EHR Chronic: N Practice ID: [id number] Billable Time: 01:30:00 PM test negative 06/30/2015 Overview (01/07/2025): Encounter for test, result negative;Recorded Elsewhere: No Location: [facility] Source: EHR Chronic: N Practice ID: [id number] Billable Time: 01:30:00 PM Delivery normal 02/25/2015 Overview (01/07/2025): NORMAL DELIVERY;Practice ID: [id number] Live from rg 02/25/2015 Overview (01/07/2025): DELIVER-SINGLE LIVEBORN;Practice ID: [id number] Primigravida 01/09/2015 Overview (01/07/2025): Supervision of normal first ;Recorded Elsewhere: No Location: [facility] Source: EHR Chronic: N Practice ID: [id number] Billable Time: 05:15:00 PM Congenital malformation 08/28/2014 Overview (01/07/2025): screening for malformation using ultrasonics;Recorded Elsewhere: No Location: [facility] Source: EHR Chronic: N Practice ID: [id number] Billable Time: 11:00:00 AM Amenorrhea 08/01/2014 Overview (01/07/2025): Absence of menstruation;Recorded Elsewhere: No Location: [facility] Source: EHR Chronic: N Practice ID: [id number] Billable Time: 08:30:00 AM test positive 08/01/2014 Overview (01/07/2025): examination or test, positive result;Recorded Elsewhere: No Location: [facility] Source: EHR Chronic: N Practice ID: [id number] Billable Time: 08:30:00 AM Female infertility 05/29/2014 Overview (01/07/2025): Infertility, female, of unspecified origin;Recorded Elsewhere: No Location: [facility] Source: EHR Chronic: N Practice ID: [id number] Billable Time: 06:00:00 PM Polyp of corpus uteri 04/11/2014 Overview (01/07/2025): Uterine polyp;Recorded Elsewhere: No Location: [facility] Source: EHR Chronic: N Practice ID: [id number] Billable Time: 05:00:00 PM 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 Overview (01/07/2025): Benign neoplasm of cervix uteri;Recorded Elsewhere: No Location: [facility] Source: EHR Chronic: Y Practice ID: [id number] Billable Time: 06:00:00 PM Encounters Date Type Department Care Team Description 01/07/2025 2:30 PM CDT Office Visit [facility] - Dermatology [address] [place] [address] Sandra Ireland MD Neoplasm of uncertain behavior of skin (Primary Dx) 01/07/2025 Travel from Last 3 Months Immunizations Immunization Administration Dates Next Due TDAP (7yrs+) 06/25/2017 Social History Tobacco Use Types Packs/Day Years Used Date Smoking Tobacco: Never Assessed Comments Unknown Sex and Gender Information Value Date Recorded Sex Assigned at Not on file Legal Sex Female 10:01 AM MACHINE MAINTENANCE Gender Identity Not on file Sexual Orientation Not on file Plan of Treatment Upcoming Encounters Date Type Department Care Team (Late st Contact Info) Description 02/18/2025 1:30 PM CDT Procedure visit [facility] - Dermatology [address], [address] [place] [address] Sandra Ireland MD [address] [facility] [address] [place] [address] Health Maintenance Due Date Last Done Comments COLOGUARD (AGES 45-75) - COL ON CA SCREENING 1978 COLON MONITORING 1978 COLONOSCOPY - COLON CA SCREENING 1978 CT COLONOGRAPHY - COLON CA SCREENING 1978 Colorectal Cancer Screening 1978 FIT - COLON CA SCREENING 1978 FLEX SIG - COLON CA SCREENING 1978 LIPID TESTING 1978 HIV SCREENING 1993 HEPATITIS C SCREENING 05/04/1996 HEPATITIS B VACCINE (1 of 3 - 19+ 3-dose series) 1997 COVID-19 VACCINE ( - 2023-2 5 season) 2024 DEPRESSION SCREENING 07/11/2024 INFLUENZA VACCINE (#1) 2025 05/13/2020 PAP SMEAR 12/29/2025 12/29/2022, 12/29/2022 MAMMOGRAM 05/28/2026 05/28/2024, 05/28/2024 DTAP/TDAP/TD VACCINES (2 - T d or Tdap) 06/25/2027 06/25/2017 ZOSTER VACCINE (1 of 2) 2028 HIB VACCINE Aged Out No longer eligi ble based on patient's age to complete this topic HPV VACCINE Aged Out No longer eligi ble based on patient's age to complete this topic MENINGOCOCCAL (Group B) VACCINE SHARED DECISION-MAKING Aged Out No longer eligible based on patient's age to complete this topic MENINGOCOCCAL GROUPS A/C/Y/W VACCINE Aged Out No longer eligible b ased on patient's age to complete this topic PNEUMOCOCCAL VACCINE Aged Out No long er eligible based on patient's age to complete this topic Insurance [facility] Care Teams Compliance Engineer Products Relationship Specialty Start Date End Date Maisha Rojas DO [address] [place] [address] PCP - General Family Medicine 01/07/25
--- OUTSIDE RECORDS SUMMARY | 2025-02-15 02:38 | XMS_ITS | Clinical Summary ---
Author Organization [facility] al Address [address] [place] [address] Care Team Providers Care Twisting Frame Fixer Name Role Phone Maisha Rojas DO Primary Care Provider [phone]- [phone] Allergies No known active allergies Medications benzonatate [...] Comments Blood Pressure 110/80 06/27/2021 8:26 AM DYE BLENDER Pulse 87 06/27/2021 8:26 AM DYE BLENDER Temperature 37.3 C (99.1 F) 06/27/2021 8:26 AM DYE BLENDER Respiratory Rate - - Oxygen Saturation 97% 06/27/2021 8:26 AM DYE BLENDER Inhaled Oxygen Concentration - - Weight 63.5 kg (140 lb) 05/28/2024 2:58 PM DYE BLENDER Height 167.6 cm (5' 6) 05/28/2024 2:58 PM DYE BLENDER Body Mass Index 22.6 05/28/2024 2:58 PM DYE BLENDER Plan of Treatment Health Maintenance Due Date Last Done Comments Cervical Cancer Screening 1978 Colon Cancer Screening-Colonoscopy 1978 Depression Screening 1978 Hepatitis C Screening 1978 Hepatitis B Screening 1996 Regular Well Visit/Exam 18-64 1996 Covid-19 Vaccine (3 - 2023-2 5 season) 2024 10/28/2020, 10/07/2020 Influenza Vaccine (#1) 2025 05/13/2020 Breast Cancer Screening-Mammogram 05/28/2025 05/28/2024, 05/28/2021 [...] Read Routine (OP Routine) 05/28/2024 3:43 PM DYE BLENDER Abnormal mammogram from Last 3 Months or Most Recently Relevant to Health Maintenance Results * Screening Mammogram Bilateral W Richardson (05/28/2024 3:43 PM DYE BLENDER) Anatomical Region Laterality Modality Breast Bilateral Mammography Narrative 05/29/2024 11:16 AM DYE BLENDER Mammogram Technique: Bilateral Digital Breast Tomosynthesis, Bilateral [...] Most Recently Relevant to Health Maintenance Insurance [place] [employer] [employer] [facility] [employer] Care Teams Twisting Frame Fixer Relationship Specialty Start Date End Date Maisha Rojas DO [address] [facility] [address] [place] [address] PCP - General Family Medicine 05/28/24
--- OUTSIDE RECORDS SUMMARY | 2025-02-15 02:38 | XMS_ITS | Encounter Summary ---
Author Organization [facility] Healthcare Address [address] [place] [address] Care Team Providers Care Supervisor Grounds Name Role Phone Unavailable Primary Care Provider Unavailabl e Reason for Visit * Diagnostic Imaging (Routine) - Closed Specialty Diagnoses / Procedures Referred By Maria Ines t Referred To Contact Procedures Breast Imaging Screening Outside Reference Ewelina Bar NP [address] [facility] [id number] [place] [address] Phone: tel: fax: Referral ID Status Reason Start Date Expiration Date Visits Re quested Visits Authorized [id number] Closed 04/28/2023 05/27/2024 1 1 Encounter Details Date Type Department Care Team (Late st Contact Info) Description 07/30/2019 Hospital Encounter [facility] [address] [place] [address] Social History Tobacco Use Types Packs/Day Years [...] OUTSIDE REFERENCE Routine 07/30/2019 12:00 AM DIRECTOR MEDICARE SALES documented in this encounter Results * Breast Imaging Screening Outside Reference (07/30/2019 12:00 AM DIRECTOR MEDICARE SALES) Impressions RAD_MAMMO_[facility] - 04/28/2023 1:09 PM CDT These images are for Reference purposes only and have not been reviewed by [facility]iology. There will be no report generated by a [facility] Radiologist. Narrative RAD_MAMMO_[facility] - 04/28/2023 1:09 PM CDT EXAMINATION: Images For Reference Purposes Only us Ewelina Bar NP IMG MAMMO PROCEDURES Final Result [facility] documented in this encounter Visit Diagnoses Not on filedocumented in this encounter
--- OUTSIDE RECORDS SUMMARY | 2025-02-15 02:38 | XMS_ITS | Encounter Summary ---
Author Organization [facility] Address [address] [place] [address] Care Team Providers Care Rib Bender Name Role Phone Dylan Chowdhury MD Primary Care Provider [phone] Maisha Rojas DO Primary Care Provider [phone] Encounter Details Date Type Department Care Team (Late Contact Info) Description 09/09/[address] [facility] [address] [facility], [facility] [place] [phone] Tata Motta MD [address] [place] [id number] Social History Tobacco Use Types Packs/Day Years Used Date Smoking Tobacco: Never Assessed Comments Unknown Sex and Gender Information Value Date Recorded Sex Assigned at Not on file Legal Sex Female 10:01 AM BRUSHING OPERATOR Gender Identity Not on file Sexual Orientation Not on file documented as of this encounter Plan of Treatment Upcoming Encounters Date Type Department Care Team (Late Contact Info) Description 02/18/2025 1:30 PM CDT Procedure visit [facility] - Dermatology [address], [facility] [address] [place] [address] Sandra Ireland MD [address] [facility] [address] [place] [address] documented as of this encounter Procedures Procedure Name Priority Date/Time Associated Diagnosis Comments DERMPATH SLIDE CONSULT Routine 09/09/2023 12:00 AM BRUSHING OPERATOR documented in this encounter Results * DERMPATH SLIDE CONSULT (09/09/2023 12:00 AM BRUSHING OPERATOR) Case Report Dermatopathology Report Case: [id number] Authorizing Provider: Tata Motta MD Collected: 09/09/2023 12:00 AM Ordering Location: [facility] DermPath Lab Received: 09/09/2023 07:27 AM Pathologist: Flor Vazquez MD Specimen: Slide(s), left superior helix, [id number] 3:32 PM BRUSHING OPERATOR DERMATOPATHOLOGY LABORATORY Final Diagnosis Specimen A. Slide(s), left superior helix, [id number]: LENTIGINOUS MELANOCYTIC NEVUS, COMPOUND TYPE (D22.22) PRESENT AT MARGIN (see microscopic description and comment) 3:32 PM [facility] DERMATOPATHOLOGY LABORATORY at 1532 BRUSHING OPERATOR Clinical History Materials received from: [facility] Dermatology [address] [place] [address] Received at the request of Dr Tata Motta are 2 slides labeled [id number]. (H&E & Juanis red) Outside diagnosis: Lentiginous compound nevus with moderate atypia Any additional sections, special stains or immunohistochemical stains performed by our laboratory will be kept here on file. 3:32 PM [facility] DERMATOPATHOLOGY LABORATORY Microscopic Description Specimen A. Slide(s), left superior helix, [id number]: This is a compound nevus. There is [...] Sonya Vazquez who concurs with the diagnosis. 4 3:32 PM BRUSHING OPERATOR DERMATOPATHOLOGY LABORATORY Disclaimer An external and internal [...] purposes. Billing Codes Specimen Charges Stain Charges 22577 1 4 3:32 PM BRUSHING OPERATOR DERMATOPATHOLOGY LABORATORY Embedded Images 4 3:32 PM BRUSHING OPERATOR DERMATOPATHOLOGY LABORATORY Pathology/Cytolog y SLIDE / Unknown 09/09/2023 09/09/2023 7:27 AM BRUSHING OPERATOR Tata Motta MD LAB - PATHOLOGY/CYTOLOGY ORDER CARY Final Result DERMATOPATHOLOGY LABORATORY [facility] - Department of Dermatology [address], [address] [phone] documented in this encounter Visit Diagnoses Not on filedocumented in this encounter Care Teams Rib Bender Relationship Specialty Start Date End Date Dylan Chowdhury MD [address] [place] [address] PCP - General Family Medicine 06/25/17 01/06/25 Maisha Rojas DO [address] [place] [address] PCP - General Family Medicine 01/07/25 documented as of this encounter
[2025-02-15 12:05] VITALS: BP 129/90; PULSE 68; RESP 18; TEMP 36.7; O2SAT 100
--- NOTE | 2025-02-15 12:10 | P.PNAN_ITS ---
<Statement entered by Marek Xie DO - 03/05/25 14:54> This documentation has been reviewed and approved. Anes - Initial Pre Proc Eval Procedure: Operation Date: 02/15/25 13:15 Proposed Procedures p Screening Colonoscopy - Kolton Osuna MD Date/Time: 02/15/25 12:10 Surgeon: Kolton Osuna MD Pre Op Diagnosis: Encounter for screening for malignant neoplasm of Patient Data Age: 44 Gender: F Height: 1.68 m Weight: 64.9 kg Allergies Allergy/AdvReac Type Severity Reaction Status Date / Time No Known Allergies Allergy Verified 02/05/25 09:31 Home Medications ?Medication ?Instructions ?Recorded ?Confirmed ?Type spironolactone 25 mg tablet 25 mg PO DAILY 09/24/24 History promethazine-DM 6.25 mg-15 mg/5 mL 5 ml PO Q4-6H PRN c ough #118 mL 09/27/24 02/05/25 Rx oral syrup ondansetron 4 mg disintegrating See Rx Instructions .R oute 03/01/25 Rx tablet .COMPLEX #9 tabs Patient hx anesthesia problems: none Family hx anesthesia problems: none Results Review: All pre-operative results and documents have been reviewed as part of the pre- operative evaluation. [facility] Past Medical History Medical History Uterine polyp Tension type headache, unspecified Temporomandibular joint disorders, unspecified Family History Family History Father Hypertension Grandparent Heart disease Social History Social History Smoking status: Never smoker Alcohol intake: never Substance use: never Substance use type: does not use Living arrangements: with family Spiritual care concerns: No Anes - Eval Final PreProcedure Day of Procedure 02/15/25 12:10 Patient weight: normal Heart: regular rate and rhythm Lungs: clear to auscultation and normal air movement Airway: Mallampati scale class II Neurological: alert and oriented Last oral intake: >/= 8 hours ASA classification: II Emergent: no Anesthetic plan: proceed Anesthesia type and monitoring: general GIVS and standard monitoring Results Review: All pre-operative results and documents have been reviewed as part of the pre- operative evaluation. Informed Consent: The patient's anesthetic plan and its attendant risks and benefits were discussed with the patient/family/POA. Questions were solicited and answers provided to the satisfaction of the patient/family/POA.
[2025-02-15] MEDS: LACTATED RINGERS 1,000 ML 150 ML IV CONT (12:20)
--- NOTE | 2025-02-15 12:51 | PM.IMHP ---
H&P: HPI History of Present Illness Date/Time: 02/15/25 12:51 Chief Complaint: Screening colonoscopy Narrative: This is the patient's first colonoscopy. There are no GI symptoms and there is no family history of colorectal cancer. Review of Systems Review of Systems: All systems reviewed & are unremarkable except as noted in HPI and below PMFSH Past Medical History Medical History Uterine polyp Tension type headache, unspecified Temporomandibular joint disorders, unspecified Family History Family History Father Hypertension Grandparent Heart disease Social History Social History Smoking status: Never smoker Alcohol intake: never Substance use: never Substance use type: does not use Living arrangements: with family Spiritual care concerns: No Meds Home Medications and Allergies Home Medications ?Medication ?Instructions ?Recorded ?Confirmed ?Type spironolactone 25 mg tablet 25 mg PO DAILY 09/24/24 02/15/25 History promethazine-DM 6.25 mg-15 mg/5 mL 5 ml PO Q4-6H PRN cough #118 mL 09/27/24 02/05/25 Rx oral syrup ondansetron 4 mg disintegrating See Rx Instructions .Route 12/25/24 02/05/25 Rx tablet .COMPLEX #9 tabs Allergies Allergy/AdvReac Type Severity Reaction Status Date / Time No Known Allergies Allergy Verified 02/05/25 09:31 Exam Const: General: cooperative and healthy appearing Resp: Effort & Inspection: normal respiratory effort and able to speak in complete sentences Auscultation: clear to auscultation bilaterally Cardio: Rate: regular rate Rhythm: regular rhythm GI: Inspection: normal to inspection GI Palp: No No hepatosplenomegaly present Auscultation: normal bowel sounds Rectal Exam: deferred Skin: General skin exam: normal color Psych: Appearance: grossly normal Mental Status: mental status grossly normal Assessment and Plan Assessment and plan (1) Screening for colon cancer: Code(s): Z12.11 - Encounter for screening for malignant neoplasm of colon Status: Acute Assessment and Plan: The patient is deemed a good candidate for the procedure. Consent signed. Will proceed.
[2025-02-15 13:04] LABS: BEDSIDEPREGUCG Negative (Negative)
[2025-02-15 13:10] VITALS: BP 107/70; PULSE 61; RESP 17; O2SAT 98
[2025-02-15 13:20] VITALS: BP 108/73; PULSE 61; RESP 16; O2SAT 99
[2025-02-15 13:30] VITALS: BP 130/82; PULSE 66; RESP 19; O2SAT 100
== END 2025-02-15 13:38 | disposition home or self-care (01) ==
PROVIDERS: Anesthesiology; PCP Family Medicine; Referring Provider Family Medicine; Visit Provider Internal Medicine Gastroenterology
PROC: 0DJD8ZZ Inspection of Lower Intestinal Tract, Via Natural or Artificial Opening Endoscopic (ICD-10-PCS; CPT 45378; principal; 2025-02-15 13:15)
DX: Z12.11 Encounter for screening for malignant neoplasm of colon (principal); Z87.42 Personal history of other diseases of the female genital tract; Z82.49 Family history of ischemic heart disease and other diseases of the circulatory system
CPT/HCPCS: 45378; J2704; J7120